=== PATIENT | female | born 1935 | race Caucasian/White ===

== ENCOUNTER 2022-08-06 08:48 | Inpatient (IN) | payer MEDICAID ==
[~2022-08-06] VITALS: Ht 144.8 cm; Wt 49.9 kg
--- NOTE | 2022-08-06 08:48 | NUR ---
PT PLACED IN BED 09 BY [facility], RT AT BEDSIDE FOR CPAP SUPPORT
[2022-08-06 08:52] VITALS: BP 217/130
[2022-08-06] MEDS ORDERED: methylPREDNISolone SS 125 MG/2 ML VIAL IVP ONE (09:00)
[2022-08-06] MEDS ORDERED: ALBUTEROL 0.083% 2.5 MG/3 ML NEBU INH ONE ×3 (09:00→09:30)
[2022-08-06] MEDS ORDERED: IPRATROPIUM 0.02% 0.5 MG/2.5 ML NEBU INH ONE ×2 (09:00)
[2022-08-06] MEDS ORDERED: hydrALAZINE 20 MG/ML VIAL IVP ONE ×2 (09:00→10:25)
[2022-08-06 09:10] LABS: BASOPHILS # (AUTO) 0.1 K/uL (0.00-0.22); BASOPHILS % (AUTO) 0.6 % (0.0-2.0); EOSINOPHILS # (AUTO) 0.2 K/uL (0-0.4); HEMATOCRIT 30.9 % (36-48); HEMOGLOBIN 9.9 g/dL (12.0-16.0); LYMPHOCYTES # (AUTO) 0.7 K/uL (2.5-16.5); LYMPHOCYTES % (AUTO) 7.4 % (20.5-51.1); MEAN CORPUSCULAR HEMOGLOBIN 25 pg (27-31); MEAN CORPUSCULAR HGB CONC 32 g/dL (33-37); MEAN CORPUSCULAR VOLUME 79.5 fL (80-94); MONOCYTES # (AUTO) 0.5 K/uL (0.8-1.0); MONOCYTES % (AUTO) 5.8 % (1.7-9.3); NEUTROPHILS # (AUTO) 7.8 K/uL (1.8-7.7); NEUTROPHILS % (AUTO) 84.2 % (42.2-75.2); PLATELET COUNT (AUTO) 307 K/uL (140-450); RED BLOOD CELL COUNT(AUTO) 3.89 MIL/uL (4.20-5.40); RED CELL DISTRIBUTION WIDTH 15.8 % (11.6-13.7); WHITE BLOOD COUNT (AUTO) 9.2 K/uL (4.8-10.8)
[2022-08-06 09:23] LABS: PROTHROMBIN TIME 10.6 secs (10.8-13.4)
[2022-08-06] MEDS ORDERED: LORazepam 2 MG/ML VIAL IVP ONE (09:30)
[2022-08-06] MEDS ORDERED: hydrALAZINE 20 MG/ML VIAL IM ONE (09:50)
--- NOTE | 2022-08-06 09:54 | NUR ---
DR FERNANDEZ SPEAKING TO SON BLAISE, INFORM OF PT CONDITION AND CLARIFYING PT HX AND INFORMATION. PER SON, PT HAS HDL, DM, "LUNG PROBLEMS, HEART PROBLEMS" Addendum: 08/06/22 at 0957 by MNURBMD COPD HOME O2 3LPM
[2022-08-06 10:00] LABS: ALBUMIN 3.8 g/dL (3.4-5.0); ANION GAP 14.2 (8-16); ASPARTATE AMINOTRANSFERASE 277 U/L (15-37); CARBON DIOXIDE 29.2 mmol/L (21-32); CHLORIDE 103 mmol/L (98-107); CREATININE 0.9 mg/dL (0.6-1.3); GLUCOSE 204 mg/dL (74-106); POTASSIUM 4.4 mmol/L (3.5-5.1); SODIUM SERUM 142 mmol/L (136-145); TOTAL BILIRUBIN 0.3 mg/dL (0.0-1.0); UREA NITROGEN, BLOOD 29 mg/dL (7-18)
[2022-08-06 10:12] VITALS: BP 217/130
--- NOTE | 2022-08-06 11:07 | NUR ---
Spoke with Dr Wu re: UA. Pt is incontinent. said ok to get when able to but not really STAT. Lab results are back.
[2022-08-06] MEDS ORDERED: KETOROLAC 15 MG/ML VIAL IVP ONE (11:15)
[2022-08-06] MEDS ORDERED: ASPIRIN 325 MG TAB PO ONE (12:15)
[2022-08-06] MEDS ORDERED: MAG SULF 2000 MG/WATER PREMIX 50 ML IV PRN (12:45)
[2022-08-06] MEDS ORDERED: ONDANSETRON 4 MG/2 ML VIAL IVP PRN (12:45)
[2022-08-06] MEDS ORDERED: DOCUSATE SODIUM 100 MG GELCAP PO PRN (12:45)
[2022-08-06] MEDS ORDERED: ACETAMINOPHEN 325 MG TAB PO PRN (12:45)
[2022-08-06] MEDS ORDERED: POTASSIUM CHLORIDE 10 MEQ TABER PO PRN (12:45)
[2022-08-06] MEDS ORDERED: cefTRIAXone 1,000 MG VIAL ONE (12:55)
[2022-08-06] MEDS ORDERED: methylPREDNISolone SS 40 MG in WATER STERILE 1 ML IV SCH (13:00)
--- NOTE | 2022-08-06 14:09 | NUR ---
COVID SWABBED AT THIS TIME
[2022-08-06] MEDS ORDERED: AZITHROMYCIN 500 MG INJ VIAL IV ONE (15:30)
[2022-08-06 15:36] LABS: BILIRUBIN,URINE NEGATIVE (NEGATIVE); BLOOD, URINE NEGATIVE (NEGATIVE); COLOR,URINE YELLOW (YELLOW); LEUKOCYTE ESTERASE ,URINE TRACE (NEGATIVE); NITRITE, URINE NEGATIVE (NEGATIVE); PH,URINE 6.5 (5.0-9.0); UGLUCOSE TRACE (NEGATIVE)
[2022-08-06 15:40] LABS: APPEARANCE,URINE HAZY (CLEAR)
[2022-08-06] MEDS: AZITHROMYCIN 500 MG in DEXTROSE 5% 250 ML IV SCH (15:50)
[2022-08-06 15:54] LABS: RBC,URINE NONE SEEN /HPF (0-5); WBC,URINE 0-5 /HPF (0-5)
[2022-08-06] MEDS ORDERED: hydrALAZINE 20 MG/ML VIAL IVP PRN (16:45)
--- NOTE | 2022-08-06 17:30 | NUR ---
admitted the patient from the emergency room rn in 107A aox2-3 with admitting diagnosis of chronic obstructive pulmonary disease . will continue to monitor
--- NOTE | 2022-08-06 17:30 | NUR ---
Patient will be admitted to care of DR. MCKEON. Admited to TELEMETRY. Will go to room 107A. Belongings list completed. Report to ETHEL LENZ.
--- NOTE | 2022-08-06 17:37 | NUR ---
PATIENT HAS BEEN SCREENED AND CATEGORIZED MODERATE NUTRITION RISK. PATIENT WILL BE SEEN WITHIN 3-5 DAYS OF ADMISSION. REVIEWED BY BINA RHOADES RD
--- NOTE | 2022-08-06 18:17 | NUR ---
Called again son Sameer to let him know that pt is admitted to 107A
[2022-08-06] MEDS: FUROSEMIDE 40 MG/4 ML VIAL IVP SCH (18:31)
--- NOTE | 2022-08-06 19:01 | NUR ---
will endorse to assistant casino shift manager rn for continuity of care for cardiac , pulmonary consult . bronchodilators and antibiotics
[2022-08-06 20:00] VITALS: BP 159/78
[2022-08-06] MEDS: methylPREDNISolone SS 40 MG/ML VIAL IVP SCH (21:17)
[2022-08-06] MEDS: ZOLPIDEM 10 MG TAB PO PRN (22:08)
--- NOTE | 2022-08-06 22:08 | NUR ---
PT COMPLAINTS OF UNABLE TO SLEEP, SLEEPING MEDICATION ADMINISTERED ORDERED.
[2022-08-06] MEDS: LORazepam 2 MG/ML VIAL IVP PRN (23:52)
--- NOTE | 2022-08-06 23:52 | NUR ---
PT VERBALIZED OF ANXIETY AND AGITATED, ATIVAN ADMINISTERED ORDERED.
[2022-08-07] VITALS: BP 164/89
[2022-08-07] MEDS: hydrALAZINE 20 MG/ML VIAL IVP PRN ×2 (01:16→23:56)
--- NOTE | 2022-08-07 01:16 | NUR ---
PT BP-164/89, P-107, HYDRALAZINE ADMINISTERED ORDER.
[2022-08-07 04:00] VITALS: BP 159/81
--- NOTE | 2022-08-07 04:45 | NUR ---
PT AWAKE AND BECOME AGITATED, UNABLE TO CHECK VITAL SIGNS. NOSE BLEEDS PRESENTS FEW MINUTES AFTER AGITATION. TRY TO CALM PATIENT BY VERBAL PROMS, PT IS STILL NOT COOPERATIVE AND AGITATED.
[2022-08-07] MEDS: methylPREDNISolone SS 40 MG/ML VIAL IVP SCH ×3 (05:00→20:27)
[2022-08-07] MEDS: LORazepam 2 MG/ML VIAL IVP PRN ×2 (05:10→09:44)
--- NOTE | 2022-08-07 05:10 | NUR ---
ADMINISTERED ATIVAN VIA IVP ORDERED AND REPORTED TO DR. GOODMAN. DR. GOODMAN INSTRUCTED TO MONITOR AND SEE HOW SHE IS DOING AFTER ATIVAN. NO NEW MEDICATION ORDER.
--- NOTE | 2022-08-07 05:20 | NUR ---
PT CALM DOWN AND NOTED TIRED AND SLEEP. VITAL SIGNS: B/P-159/81, O2 SAT-100% ON 2 LPM, HR-104, T-96.3. R-23. NOSE BLEEDING IS STOP.
--- NOTE | 2022-08-07 07:12 | NUR ---
receive the patient from the shift mechanic rn in rm 107A aox2 with episode of confusion .admitting diagnosis of chronic obstructive pulmonary disease still on breathing treatments PRN for shortness of breath . will also be treated with antibiotics . will continue to monitor
[2022-08-07 07:15] LABS: BASOPHILS % (AUTO) 0.2 % (0.0-2.0); HEMATOCRIT 25.5 % (36-48); HEMOGLOBIN 8.3 g/dL (12.0-16.0); LYMPHOCYTES # (AUTO) 0.5 K/uL (2.5-16.5); LYMPHOCYTES % (AUTO) 7.8 % (20.5-51.1); MEAN CORPUSCULAR HEMOGLOBIN 25 pg (27-31); MEAN CORPUSCULAR HGB CONC 33 g/dL (33-37); MEAN CORPUSCULAR VOLUME 78.1 fL (80-94); MONOCYTES # (AUTO) 0.3 K/uL (0.8-1.0); MONOCYTES % (AUTO) 3.8 % (1.7-9.3); NEUTROPHILS % (AUTO) 88.2 % (42.2-75.2); PLATELET COUNT (AUTO) 262 K/uL (140-450); RED BLOOD CELL COUNT(AUTO) 3.27 MIL/uL (4.20-5.40); RED CELL DISTRIBUTION WIDTH 16.1 % (11.6-13.7); WHITE BLOOD COUNT (AUTO) 6.8 K/uL (4.8-10.8)
[2022-08-07 07:33] LABS: ANION GAP 13.4 (8-16); CARBON DIOXIDE 28.5 mmol/L (21-32); CHLORIDE 104 mmol/L (98-107); CREATININE 0.9 mg/dL (0.6-1.3); GLUCOSE 185 mg/dL (74-106); POTASSIUM 3.9 mmol/L (3.5-5.1); SODIUM SERUM 142 mmol/L (136-145); UREA NITROGEN, BLOOD 29 mg/dL (7-18)
--- NOTE | 2022-08-07 07:45 | NUR ---
intravenous line was pulled out accidentally by the patient oh=n her left antecubital . secure with 4x4 gauze to prevent bleeding and infection
--- NOTE | 2022-08-07 07:45 | NUR ---
will hold blood thinner Aspirin for excessive bleeding . will continue to monitor
[2022-08-07 08:00] VITALS: BP 149/74
--- NOTE | 2022-08-07 08:00 | NUR ---
started intravenous line right hand gauge 22 . patent and intact . secured with curlex
[2022-08-07] MEDS: MORPHINE SULFATE 2 MG/ML SYR IVP PRN ×2 (08:09→17:26)
[2022-08-07] MEDS: ASPIRIN 81 MG TAB.CHEW PO SCH (08:09)
[2022-08-07] MEDS: lisinopriL 10 MG TAB PO SCH (08:09)
[2022-08-07] MEDS: FUROSEMIDE 40 MG/4 ML VIAL IVP SCH ×2 (08:09→17:26)
--- NOTE | 2022-08-07 08:15 | NUR ---
md zuluaga made some rounds . gave an update of the patient . no further order at this time .
--- NOTE | 2022-08-07 08:30 | NUR ---
morphine sulfate was given thru intravenous line for mild chest pain . will re assess after an hour .
--- NOTE | 2022-08-07 09:15 | NUR ---
magnesium level of the patient is 1.7 . magnesium was replace with magnesium intravenous at 20mls/hr . will continue to monitor
--- NOTE | 2022-08-07 09:43 | NUR ---
REC'D CALL TO GIVE PRN TREATMENT. UPON ARRIVAL FOUND PATIENT IN RESPIRATORY DISTRESS - LABORED BREATHING AND MODERATED USE OF ABDOMINAL MUSCLES. RR WAS 32. AFTER TREATMENT PATIENT RR DECREASED TO 24 AND OLNY MODERATE USE OF ABDOMINAL MUSCLES. FOLLOWED UP AN HOUR LATER AND PT WAS RELAXED AND SLEEPING.
--- NOTE | 2022-08-07 09:45 | NUR ---
patient showing sign and symptoms of anxiety . atiavn was administered . will re assess after an hour . will continue to monitor .
[2022-08-07] MEDS: ALBUTEROL 0.083% 2.5 MG/3 ML NEBU INH PRN (10:02)
--- NOTE | 2022-08-07 10:23 | NUR ---
the patient was showing sign and symptoms of shortness of breath . the respiratory was called for a PRN breathing treatment .
[2022-08-07 12:00] VITALS: BP 173/83
[2022-08-07] MEDS: AZITHROMYCIN 500 MG in DEXTROSE 5% 250 ML IV SCH (15:43)
[2022-08-07 16:00] VITALS: BP 133/67
--- NOTE | 2022-08-07 16:50 | NUR ---
new intravenous catheter was inserted on right forearm gauge 20 . patent and intact
--- NOTE | 2022-08-07 17:15 | NUR ---
morphine was given due to complain of chest pain 10/09 . will continue to monitor
--- NOTE | 2022-08-07 18:59 | NUR ---
will endorse to awake overnight monitor rn for continuity of care . for antibiotics , breathing treatment . diuretics .
--- NOTE | 2022-08-07 19:10 | NUR ---
RECEIVED PT FRO MORNING SHIFT NURSE. PT IS AOX2, BEDBOUND, SYRIAN SPEAKING. PT IS ON 3L NC AND ON MECHANICAL SOFT DIET. PT HAS IV ON RIGHT FOREARM GAUGE 20, SALINE LOCK. PT SKIN IS INTACT. NO COMPLAIN OF PAIN AT THIS TIME AND NO S/S OF RESPIRATORY DISTRESS NOTED. ALL SAFETY MEASURES IMPLEMENTED. BAD WHEELS ON LOCK, BED IN LOW POSITION AND CALL LIGHT WITHIN REACH.
[2022-08-07 20:00] VITALS: BP 131/68
--- NOTE | 2022-08-07 20:27 | NUR ---
SCHEDULED AND PRESCRIBED MEDICATION WAS GIVEN TO PT PER MD ORDER. ALL SAFETY MEASURES IMPLEMENTED. BAD WHEELS ON LOCK, BED IN LOW POSITION AND CALL LIGHT WITHIN REACH.
[2022-08-07] MEDS: ZOLPIDEM 10 MG TAB PO PRN (22:23)
--- NOTE | 2022-08-07 22:23 | NUR ---
AMBIEN WAS GIVEN TO PT. NO S/S OF RESPIRATORY DISTRESS NOTED. ALL SAFETY MEASURES IMPLEMENTED. BAD WHEELS ON LOCK, BED IN LOW POSITION AND CALL LIGHT WITHIN REACH.
--- NOTE | 2022-08-07 23:56 | NUR ---
PRN HYDRALAZINE WAS GIVEN TO PT DUE TO BP OF 163/89 WITH PULSE OF 95.
[2022-08-08] VITALS: BP 163/89
--- NOTE | 2022-08-08 02:00 | NUR ---
PT IS SLEEPING. CHEST RISE AND FALL SYMMETRICALLY NOTED. RESPIRATION IS EVEN AND UNLABORED. ALL SAFETY MEASURES IMPLEMENTED. BED IN LOW POSITION, BED WHEELS ON LOCK AND CALL LIGHT WITHIN REACH.
[2022-08-08 04:00] VITALS: BP 139/69
--- NOTE | 2022-08-08 04:00 | NUR ---
MORNING CARE WAS DONE TO PT. CHANGED GOWN, CHUCKS AND LINENS. NO COMPLAIN OF PAIN. NO S/S OF RESPIRATORY DISTRESS NOTED. ALL SAFETY MEASURES IMPLEMENTED. BED IN LOW POSITION, BED WHEELS ON LOCK AND CALL LIGHT WITHIN REACH.
[2022-08-08] MEDS: methylPREDNISolone SS 40 MG/ML VIAL IVP SCH ×3 (05:10→20:07)
--- NOTE | 2022-08-08 05:10 | NUR ---
SCHEDULED AND PRESCRIBED MEDICATION WAS GIVEN TO PT PER MD ORDER. ALL SAFETY MEASURES IMPLEMENTED. BED IN LOW POSITION, BED WHEELS ON LOCK AND CALL LIGHT WITHIN REACH.
--- NOTE | 2022-08-08 07:05 | NUR ---
REPORT GIVEN TO ADITI GODDARD IN STABLE CONDITION. Addendum: 08/08/22 at 1914 by Gonzalez Torres LVN LVN ENTERED WRONG TIME.
--- NOTE | 2022-08-08 07:09 | NUR ---
ASSUMED CONTINUITY OF CARE. INITIAL ASSESSMENT DONE. KEEP COMFORTABLE ON BED. FALL PRECAUTION APPLIED. CALL LIGHT WITHIN REACH.
--- NOTE | 2022-08-08 07:09 | NUR ---
PT IS STABLE. ENDORSED PT TO MORNING SHIFT NURSE FOR CONTINUITY OF CARE.
[2022-08-08 07:37] LABS: HEMATOCRIT 25.8 % (36-48); HEMOGLOBIN 8.4 g/dL (12.0-16.0); LYMPHOCYTES # (AUTO) 0.7 K/uL (2.5-16.5); MEAN CORPUSCULAR HEMOGLOBIN 25 pg (27-31); MEAN CORPUSCULAR HGB CONC 33 g/dL (33-37); MEAN CORPUSCULAR VOLUME 77.4 fL (80-94); MONOCYTES # (AUTO) 0.3 K/uL (0.8-1.0); MONOCYTES % (AUTO) 4.7 % (1.7-9.3); PLATELET COUNT (AUTO) 268 K/uL (140-450); RED BLOOD CELL COUNT(AUTO) 3.33 MIL/uL (4.20-5.40)
[2022-08-08 07:55] LABS: CARBON DIOXIDE 30.2 mmol/L (21-32); CHLORIDE 105 mmol/L (98-107); CREATININE 1.1 mg/dL (0.6-1.3); GLUCOSE 157 mg/dL (74-106); POTASSIUM 4.2 mmol/L (3.5-5.1); SODIUM SERUM 143 mmol/L (136-145); UREA NITROGEN, BLOOD 48 mg/dL (7-18)
[2022-08-08 08:00] VITALS: BP 170/80
[2022-08-08] MEDS: hydrALAZINE 20 MG/ML VIAL IVP PRN (08:04)
[2022-08-08 08:20] LABS: LYMPHOCYTES % (AUTO) 9.6 % (20.5-51.1); NEUTROPHILS % (AUTO) 85.7 % (42.2-75.2)
--- NOTE | 2022-08-08 08:34 | NUR ---
RECEIVED ON SUPPLEMENTAL OXYGEN AT 3 LPM VIA NC SATURATION 99% POST HHN THERAPY TITRATED FIO2 TO 2 LPM DEE/RN NOTIFIED
--- NOTE | 2022-08-08 08:35 | NUR ---
RESPIRATORY THERAPIST -ODIN SAMPSON FOR PT. BREATHING TX. RT. ADJUSTED O2 AT 2L/MIN VIA NC.
[2022-08-08 09:10] VITALS: BP 134/67
[2022-08-08] MEDS: lisinopriL 10 MG TAB PO SCH (09:14)
[2022-08-08] MEDS: ASPIRIN 81 MG TAB.CHEW PO SCH (09:14)
[2022-08-08] MEDS: FUROSEMIDE 40 MG/4 ML VIAL IVP SCH ×2 (09:21→17:00)
[2022-08-08] MEDS: ALBUTEROL 0.083% 2.5 MG/3 ML NEBU INH PRN ×2 (11:08→14:10)
[2022-08-08 12:00] VITALS: BP 130/63
--- NOTE | 2022-08-08 13:00 | NUR ---
DR. MCKEON CAME AND SEEN PT..
--- NOTE | 2022-08-08 14:25 | NUR ---
INSERTED ADDITIONAL IV ACCESS ON LEFT WRIST GAUGE #22. TOLERATED WELL.
[2022-08-08] MEDS: AZITHROMYCIN 500 MG in DEXTROSE 5% 250 ML IV SCH (15:02)
[2022-08-08 16:45] VITALS: BP 125/56
--- NOTE | 2022-08-08 19:05 | NUR ---
REPORT GIVEN TO ADITI GODDARD IN STABLE CONDITION.
--- NOTE | 2022-08-08 19:06 | NUR ---
RECEIVED PT FROM MORNING SHIFT NURSE. PT IS AOX2-3, BEDBOUND, UKRAINIAN SPEAKING. PT IS ON 2L NC AND ON PUREE DIET. PT HAS IV ON RIGHT FOREARM GAUGE 20, SALINE LOCK AND LEFT WRIST GAUGE 22, SALINE LOCK. PT SKIN IS INTACT. NO COMPLAIN OF PAIN AT THIS TIME AND NO S/S OF RESPIRATORY DISTRESS NOTED. ALL SAFETY MEASURES IMPLEMENTED. BAD WHEELS ON LOCK, BED IN LOW POSITION AND CALL LIGHT WITHIN REACH.
--- NOTE | 2022-08-08 20:07 | NUR ---
SCHEDULED AND PRESCRIBED MEDICATION WAS GIVEN TO PT AND PRN JL PER MD ORDER. ALL SAFETY MEASURES IMPLEMENTED. BAD WHEELS ON LOCK, BED IN LOW POSITION AND CALL LIGHT WITHIN REACH.
[2022-08-08] MEDS: ZOLPIDEM 10 MG TAB PO PRN (20:08)
[2022-08-08] MEDS: MORPHINE SULFATE 2 MG/ML SYR IVP PRN (22:56)
--- NOTE | 2022-08-08 22:56 | NUR ---
PRN PAIN MEDICATION WAS GIVEN TO PT DUE TO BILATERAL LEG PAIN. ALL SAFETY MEASURES IMPLEMENTED. BAD WHEELS ON LOCK, BED IN LOW POSITION AND CALL LIGHT WITHIN REACH.
[2022-08-09] VITALS: BP 149/70
--- NOTE | 2022-08-09 | NUR ---
PT IS ON SLEEP. CHEST RISE AND FALL SYMMETRICALLY NOTED. RESPIRATION IS EVEN AND UNLABORED. ALL SAFETY MEASURES IMPLEMENTED. BED WHEELS ON LOCK, BED IN LOW POSITION AND CALL LIGHT WITHIN REACH.
--- NOTE | 2022-08-09 02:00 | NUR ---
CHECKED THE PT, STILL ON SLEEP. CHEST RISE AND FALL SYMMETRICALLY NOTED. RESPIRATION IS EVEN AND UNLABORED. ALL SAFETY MEASURES IMPLEMENTED. BED WHEELS ON LOCK, BED IN LOW POSITION AND CALL LIGHT WITHIN REACH.
--- NOTE | 2022-08-09 04:00 | NUR ---
MORNING CARE WAS DONE TO PT. CHANGED LINENS, GOWN AND SAJAN. PT DENIES PAIN. NO S/S OF RESPIRATORY DISTRESS NOTED. ALL SAFETY MEASURES IMPLEMENTED. BED IN LOW POSITION, BED WHEELS ON LOCK AND CALL LIGHT WITHIN REACH.
[2022-08-09] MEDS: methylPREDNISolone SS 40 MG/ML VIAL IVP SCH ×2 (05:59→12:50)
[2022-08-09 07:07] LABS: BASOPHILS % (AUTO) 0.1 % (0.0-2.0); HEMOGLOBIN 8.5 g/dL (12.0-16.0); LYMPHOCYTES # (AUTO) 0.7 K/uL (2.5-16.5); LYMPHOCYTES % (AUTO) 8.5 % (20.5-51.1); MEAN CORPUSCULAR HEMOGLOBIN 25 pg (27-31); MEAN CORPUSCULAR HGB CONC 33 g/dL (33-37); MEAN CORPUSCULAR VOLUME 77.6 fL (80-94); MONOCYTES # (AUTO) 0.4 K/uL (0.8-1.0); MONOCYTES % (AUTO) 4.6 % (1.7-9.3); NEUTROPHILS % (AUTO) 86.8 % (42.2-75.2); PLATELET COUNT (AUTO) 257 K/uL (140-450); RED BLOOD CELL COUNT(AUTO) 3.35 MIL/uL (4.20-5.40); RED CELL DISTRIBUTION WIDTH 15.8 % (11.6-13.7); WHITE BLOOD COUNT (AUTO) 8.1 K/uL (4.8-10.8)
[2022-08-09 07:15] LABS: ANION GAP 9.9 (8-16); CHLORIDE 103 mmol/L (98-107); CREATININE 1.2 mg/dL (0.6-1.3); GLUCOSE 193 mg/dL (74-106); POTASSIUM 3.9 mmol/L (3.5-5.1); SODIUM SERUM 141 mmol/L (136-145); UREA NITROGEN, BLOOD 55 mg/dL (7-18)
--- NOTE | 2022-08-09 07:20 | NUR ---
RECEIVED REPORT FROM ASSOCIATE MANAGER AFFILIATE MARKETING ADITI FOR CONTINUITY OF CARE. INITIAL ASSESSMENT DONE. ASLEEP AT THIS TIME. ON CONT. O2 @ 2L/NC. RESP. EVEN AND UNLABORED. IV ON SL. NOT IN ANY DISTRESS NOTED. CALL LIGHT KEPT WITHIN REACH. WILL CONTINUE TO MONITOR.
--- NOTE | 2022-08-09 07:23 | NUR ---
PT IS STABLE. ENDORSED PT TO MORNING SHIFT NURSE FOR CONTINUITY OF CARE.
[2022-08-09 08:00] VITALS: BP 163/81
--- NOTE | 2022-08-09 08:00 | NUR ---
Patient's Plan of Care was discussed and reviewed with CLOUD SECURITY ARCHITECT: [] Barbara
[2022-08-09] MEDS: lisinopriL 10 MG TAB PO SCH (10:05)
[2022-08-09] MEDS: ASPIRIN 81 MG TAB.CHEW PO SCH (10:05)
[2022-08-09] MEDS: FUROSEMIDE 40 MG TAB PO SCH (10:05)
--- NOTE | 2022-08-09 10:05 | NUR ---
SCHEDULED PO MEDICATIONS GIVEN. TOLERATING WELL.
--- NOTE | 2022-08-09 12:38 | NUR ---
PT. WITH LOW MICHAEL SCALE AT MODERATE TO HIGH RISK, CONTINUE TO FOLLOW PRESSURE INJURY PREVENTION INTERVENTIONS. -POSITIONING: TURN AND REPOSITION PATIENT Q 2H OR SOONER USE PILLOWS TO KEEP BONY PROMINENCES FROM DIRECT CONTACT WITH SURFACES USE REPOSITIONING WEDGES TO PROVIDE 30-DEGREE ANGLE FOR SIDE LYING POSITIONS OFFLOADING OR FOAM DRESSING TO ALL TUBING TO PREVENT MEDICAL DEVICES RELATED PRESSURE INJURY -RE-EVALUATING AND MANAGING INCONTINENCE MONITOR SKIN CONDITION DURING POSITION CHANGE DO NOT MASSAGE REDNESS, BONY PROMINENCES FREQUENT MEDHAT-CARE AND PROVIDE BARRIER CREAMS PRN IF SOILING MOISTURE CONTROL BY OFFER BED CONNELL/URINAL /ABSORBENT PAD TO WICK AND HOLD MOISTURE KEEP SKIN DRY AND PROTECT FROM FRICTION -MANAGE FRICTION/SHEAR/MOBILITY KEEP HOB AT THE LOWEST LEVEL OF ELEVATION NO MORE THAN 30 DEGREE UNLESS OTHERWISE CONTRAINDICATED USE LIFT SHEET OR TRANSFER DEVICE TO MOVE PATIENT AND PREVENT LATERAL SHEER. PROTECT HEELS, ELBOWS BONY PROMINENCES WITH SKIN BERRIES OR FOAM DRESSING IF EXPOSED TO FRICTION OFFLOAD BILATERAL HEELS BY PLACING PILLOWS UNDER CALVES AT ALL TIMES, UNLESS OTHERWISE CONTRAINDICATED -PRESSURE REDISTRIBUTION SURFACE THERAPY DALLIN ISOFLEX MATTRESS -NUTRITION: PLEASE FOLLOW RD RECOMMENDATIONS AND OFFER NUTRITION SUPPLEMENTS IF ORDERED. PLEASE CONTACT WOUND CARE NURSE FOR ANY QUESTION AND CHANGE OF WOUND CONDITION.
--- NOTE | 2022-08-09 12:49 | NUR ---
IV ROCEPHIN WAS GIVEN BY DEMARCUS DAVENPORT. TOLERATING WELL.
--- NOTE | 2022-08-09 15:12 | NUR ---
DC PLANNING ASSESSMENT COMPLETE PLEASE REFER TO ASSESSMENT FOR ADDITIONAL DETAILS BLAISE REPORTS DC PLAN IS FOR PT TO RETURN HOME WITH FAMILY PROVIDING TRANSPORTATION, WHEN MEDICALLY STABLE. Addendum: 08/09/22 at 1514 by Sen PARISI Amended: Links added.
[2022-08-09 16:00] VITALS: BP 161/86
[2022-08-09] MEDS: AZITHROMYCIN 500 MG in DEXTROSE 5% 250 ML IV SCH (16:00)
--- NOTE | 2022-08-09 16:00 | NUR ---
IV AZITHROMYCIN WAS GIVEN BY DEMARCUS DAVENPORT. TOLERATING WELL.
--- NOTE | 2022-08-09 19:33 | NUR ---
REPORT GIVEN TO JOANA FOR CONTINUITY OF CARE. REMAINS STABLE.
--- NOTE | 2022-08-09 19:57 | NUR ---
RECEIVED PATIENT IN BED AWAKE ALERT VERBALLY RESPONSIVE. ON 2L O2 VIA NC. NO S/S OF RESPIRATORY DISTRESS. IV ACCESS TO RFA AND LEFT WRIST 20 GAUGE SALINE LOCK. DENIES PAIN. ALL SAFETY PRECAUTIONS ARE IN PLACE. CALL LIGHT ON EASY REACH. PATIENT IS INCONTINENT.
[2022-08-09] MEDS: ZOLPIDEM 10 MG TAB PO PRN (20:45)
[2022-08-09] MEDS: hydrALAZINE 20 MG/ML VIAL IVP PRN (21:01)
[2022-08-09] MEDS: LORazepam 2 MG/ML VIAL IVP PRN (23:23)
[2022-08-10] VITALS: BP 150/87
--- NOTE | 2022-08-10 01:25 | NUR ---
PATIENT SLEEPING ON 2LNC NO SOB NOTED
--- NOTE | 2022-08-10 03:10 | NUR ---
REGISTRY NURSE SU RN NOTIFIED RN, OBSERVED PATIENT OUT OF BED WITH UNSTEADY GAIT OF FALLING AGAINST DOOR AND SLIDING DOWN TO FLOOR ON BOTTOM. ASSISTED PT WITH 2 STAFF BACK TO BED. SKIN CHECKED NO INJURY, NO BRUISES NO CHANGE IN MENTAL STATUS, NO LOSS OF CONSCIOUSNESS. HEAD TO TOE ASSESSMENT COMPLETED. V/S: AFTER THE FALL: 156/88 82 18 94% 97.4. MD AND FAMILY MEMBER NOTIFIED.
--- NOTE | 2022-08-10 07:10 | NUR ---
RECEIVED REPORT FROM PIE BAKERY LABORER FOR CONTINUITY OF CARE. INITIAL ASSESSMENT DONE. IV ON SL. ON CONT. O2 @ 2L/NC. NOT IN ANY DISTRESS NOTED. CALL LIGHT KEPT WITHIN REACH. WILL CONTINUE TO MONITOR.
--- NOTE | 2022-08-10 07:20 | NUR ---
ENDORSED PATIENT TO DAY SHIFT NURSE FOR CONTINUITY OF CARE.
[2022-08-10 07:27] LABS: BASOPHILS % (AUTO) 0.1 % (0.0-2.0); EOSINOPHILS % (AUTO) 0.3 % (0.0-4.0); HEMATOCRIT 25.1 % (36-48); HEMOGLOBIN 8.4 g/dL (12.0-16.0); LYMPHOCYTES # (AUTO) 1.5 K/uL (2.5-16.5); LYMPHOCYTES % (AUTO) 20.5 % (20.5-51.1); MEAN CORPUSCULAR HEMOGLOBIN 26 pg (27-31); MEAN CORPUSCULAR HGB CONC 33 g/dL (33-37); MEAN CORPUSCULAR VOLUME 77.3 fL (80-94); MONOCYTES # (AUTO) 0.9 K/uL (0.8-1.0); MONOCYTES % (AUTO) 11.5 % (1.7-9.3); NEUTROPHILS % (AUTO) 67.6 % (42.2-75.2); PLATELET COUNT (AUTO) 248 K/uL (140-450); RED BLOOD CELL COUNT(AUTO) 3.25 MIL/uL (4.20-5.40); RED CELL DISTRIBUTION WIDTH 15.2 % (11.6-13.7); WHITE BLOOD COUNT (AUTO) 7.5 K/uL (4.8-10.8)
[2022-08-10 07:37] LABS: ANION GAP 8.3 (8-16); CARBON DIOXIDE 34.5 mmol/L (21-32); CHLORIDE 103 mmol/L (98-107); CREATININE 0.9 mg/dL (0.6-1.3); GLUCOSE 132 mg/dL (74-106); POTASSIUM 3.8 mmol/L (3.5-5.1); SODIUM SERUM 142 mmol/L (136-145); UREA NITROGEN, BLOOD 40 mg/dL (7-18)
[2022-08-10 08:00] VITALS: BP 150/74
[2022-08-10] MEDS: ASPIRIN 81 MG TAB.CHEW PO SCH (09:00)
[2022-08-10] MEDS: FUROSEMIDE 40 MG TAB PO SCH (09:00)
[2022-08-10] MEDS: lisinopriL 10 MG TAB PO SCH (09:00)
[2022-08-10] MEDS ORDERED: methylPREDNISolone SS 40 MG/ML VIAL IVP SCH (09:00)
--- NOTE | 2022-08-10 09:00 | NUR ---
SCHEDULED PO MEDICATIONS GIVEN. TOLERATED WELL.
--- NOTE | 2022-08-10 09:55 | NUR ---
SOLU MEDROL IVP GIVEN BY DEMARCUS DAVENPORT. TOLERATING WELL.
[2022-08-10] MEDS ORDERED: AZIT250T11 PO (12:32)
[2022-08-10] MEDS ORDERED: METH4TAB1 PO (12:32)
[2022-08-10] MEDS ORDERED: ASPI81CT95 PO (12:32)
[2022-08-10] MEDS ORDERED: LISI10TA30 PO (12:32)
[2022-08-10] MEDS ORDERED: FURO40TA9 PO (12:32)
--- NOTE | 2022-08-10 13:28 | NUR ---
IV ROCEPHIN WAS GIVEN BY DEMARCUS DAVENPORT. TOLERATING WELL.
[2022-08-10] MEDS: AZITHROMYCIN 500 MG in DEXTROSE 5% 250 ML IV SCH (15:00)
[2022-08-10 16:00] VITALS: BP 153/69
--- NOTE | 2022-08-10 16:24 | NUR ---
AZITHROMYCIN IV NOT GIVEN D/T PT FOR DISCHARGE.
--- NOTE | 2022-08-10 17:25 | NUR ---
P.T. NOTES P.T. EVAL COMPLETED; REFER TO EVAL FOR DETAILS.
--- NOTE | 2022-08-10 17:25 | NUR ---
PATIENT LEFT. DISCHARGE TO HOME. ALERT AND ORIENTED X 4. RESP. EVEN AND UNLABORED. ID BAND AND IV REMOVED. DISCHARGED PAPERWORK SIGN AND DISCUSS BY PT. PERSONAL BELONGINGS TAKEN. NOT IN ANY DISTRESS NOTED. REMAINS STABLE.
== END 2022-08-10 17:25 | disposition home or self-care (01) | DRG 720 ==
LOC: MED 08:48 → MTU 12:40
PROVIDERS: ADMIT Family Medicine; ATTEND Family Medicine
PROC: 5A09357 Assistance with Respiratory Ventilation, Less than 24 Consecutive Hours, Continuous Positive Airway Pressure (ICD-10-PCS; principal; 2022-08-06)
DX: A41.9 Sepsis, unspecified organism (principal); J96.21 Acute and chronic respiratory failure with hypoxia; I21.A1 Myocardial infarction type 2; J69.0 Pneumonitis due to inhalation of food and vomit; I50.33 Acute on chronic diastolic (congestive) heart failure; D50.9 Iron deficiency anemia, unspecified; E11.9 Type 2 diabetes mellitus without complications; J44.0 Chronic obstructive pulmonary disease with (acute) lower respiratory infection; I11.0 Hypertensive heart disease with heart failure; Z20.822 Contact with and (suspected) exposure to COVID-19; F17.200 Nicotine dependence, unspecified, uncomplicated; J44.1 Chronic obstructive pulmonary disease with (acute) exacerbation; I16.0 Hypertensive urgency
CPT/HCPCS: 36415; 36600; 71045; 80048; 80053; 81001; 82803; 83605; 83735; 83880; 84484; 85025; 85610; 85730; 87040; 87081; 87086; 93005; 94640; 94660; 96374; 96375; 96376; 99285; J0360; J0456; J0696; J1885; J1940; J2060; J2270; J2920; J2930; J3475; J7060; J7613; J7644; Q0092

== ENCOUNTER 2022-10-10 19:34 | Inpatient (IN) | payer MEDICAID ==
[~2022-10-10] VITALS: Ht 147.3 cm; Wt 44.5 kg
[~2022-10-10 19:34] MED LIST: ASPI81CT95 PO; AZIT250T11 PO; FURO40TA9 PO; LISI10TA30 PO; METH4TAB1 PO
--- NOTE | 2022-10-10 19:35 | NUR ---
PT BIBA VIA CPAP. PLACED ON BIPAP SETTINGS: 04/05, FIO2 30% PER DR. CRAWFORD. B/S DIMINISHED. SPO2 99% AT THIS TIME. WILL UPDATE FOR ANY NEW ORDERS.
--- NOTE | 2022-10-10 19:38 | NUR ---
AMPARO POWERS PT. PLACED IN BED 11
[2022-10-10] MEDS ORDERED: cefTRIAXone 1,000 MG in DEXT 5% MINI-BAG PLUS 50 ML IV ONE (19:40)
[2022-10-10 19:50] VITALS: BP 200/131
[2022-10-10] MEDS ORDERED: cefTRIAXone 1,000 MG VIAL ONE (19:56)
--- NOTE | 2022-10-10 20:00 | NUR ---
X-Ray at bedside.
[2022-10-10 20:12] LABS: BASOPHILS % (AUTO) 0.8 % (0.0-2.0); EOSINOPHILS # (AUTO) 0.1 K/uL (0-0.4); EOSINOPHILS % (AUTO) 2.2 % (0.0-4.0); HEMATOCRIT 33.2 % (36-48); LYMPHOCYTES # (AUTO) 1.2 K/uL (2.5-16.5); LYMPHOCYTES % (AUTO) 20.8 % (20.5-51.1); MEAN CORPUSCULAR HEMOGLOBIN 27 pg (27-31); MEAN CORPUSCULAR HGB CONC 33 g/dL (33-37); MEAN CORPUSCULAR VOLUME 81.7 fL (80-94); MONOCYTES # (AUTO) 0.4 K/uL (0.8-1.0); NEUTROPHILS # (AUTO) 3.9 K/uL (1.8-7.7); NEUTROPHILS % (AUTO) 69.2 % (42.2-75.2); PLATELET COUNT (AUTO) 283 K/uL (140-450); RED BLOOD CELL COUNT(AUTO) 4.06 MIL/uL (4.20-5.40); RED CELL DISTRIBUTION WIDTH 18.6 % (11.6-13.7); WHITE BLOOD COUNT (AUTO) 5.6 K/uL (4.8-10.8)
--- NOTE | 2022-10-10 20:38 | NUR ---
ASSISTED PT TO COMMODE TO URINATE AND FOR URINE COLLECTION. PT ABLE TO TOLERATE BUT NOTED TO HAVE O2 SATURATION DROP TO 93% WITH BIBPAP. ER AWARE.
--- NOTE | 2022-10-10 20:40 | NUR ---
MADE ER AWARE OF ELEVATED BP- NO NEW ORDERS AT THIS TIME.
[2022-10-10 20:42] LABS: ALBUMIN 3.7 g/dL (3.4-5.0); ANION GAP 10.9 (8-16); ASPARTATE AMINOTRANSFERASE 52 U/L (15-37); CARBON DIOXIDE 32.5 mmol/L (21-32); CHLORIDE 98 mmol/L (98-107); CREATININE 0.8 mg/dL (0.6-1.3); GLUCOSE 125 mg/dL (74-106); POTASSIUM 4.4 mmol/L (3.5-5.1); SODIUM SERUM 137 mmol/L (136-145); TOTAL BILIRUBIN 0.2 mg/dL (0.0-1.0); UREA NITROGEN, BLOOD 13 mg/dL (7-18)
[2022-10-10 20:52] LABS: BILIRUBIN,URINE NEGATIVE (NEGATIVE); BLOOD, URINE NEGATIVE (NEGATIVE); LEUKOCYTE ESTERASE ,URINE TRACE (NEGATIVE); NITRITE, URINE NEGATIVE (NEGATIVE); UGLUCOSE NEGATIVE (NEGATIVE)
[2022-10-10] MEDS ORDERED: LORazepam 2 MG/ML VIAL IVP ONE (20:55)
[2022-10-10 21:02] LABS: APPEARANCE,URINE HAZY (CLEAR)
[2022-10-10 21:10] LABS: COLOR,URINE STRAW (YELLOW); RBC,URINE FEW /HPF (0-5)
--- NOTE | 2022-10-10 21:23 | NUR ---
ASSISTED PATIENT OUT OF CLOTHES AND PLACED HOSPITAL GOWN. TOOK OFF BIPAP BUT PT HAD GONE DOWN TO 79% RA. PLACED BIPAP BACK ON AND MADE ER MD AWARE. PER ER MD KEEP PATIENT ON BIPAP BUT HAVE RT TURN DOWN O2 TO SEE HOW PATIENT WILL TOLERATE. ALSO INFORMED MD ABOUT CONSTANT ELEVATED BP- NO NEW ORDERS AT THIS TIME.
--- NOTE | 2022-10-10 21:25 | NUR ---
RT AT BEDSIDE
[2022-10-10] MEDS ORDERED: ALBUTEROL SULFATE/IPRATROPIU 3 ML SOL IH PRN (21:40)
[2022-10-10] MEDS ORDERED: HEPARIN PER PHARMACY MC PRN (23:30)
[2022-10-10] MEDS ORDERED: hePARIN / DEXT 5% PREMIX 250 ML IV SCH (23:30)
[2022-10-10 23:46] LABS: PROTHROMBIN TIME 10.7 secs (10.8-13.4)
[2022-10-11] MEDS: hePARIN / DEXT 5% PREMIX 250 ML IV SCH ×2 (00:58→10:11)
[2022-10-11] MEDS ORDERED: HYDROcodone/APAP 5/325 MG 1 TAB TAB PO PRN (01:55)
[2022-10-11] MEDS ORDERED: MORPHINE SULFATE 4 MG/ML SYR IVP PRN (01:55)
--- NOTE | 2022-10-11 02:51 | NUR ---
Informed admitting doctor about elevated BP 200s/100s. awaiting for orders.
--- NOTE | 2022-10-11 04:28 | NUR ---
Respiratory Therapist at bedside for respiratory intervention. Patient tolerated .
[2022-10-11 04:32] VITALS: BP 165/85
--- NOTE | 2022-10-11 06:31 | NUR ---
ASSISTED PT TO COMMODE TO URINATE. PT TOLERATING WELL.
[2022-10-11 06:52] LABS: BASOPHILS % (AUTO) 0.9 % (0.0-2.0); EOSINOPHILS # (AUTO) 0.1 K/uL (0-0.4); EOSINOPHILS % (AUTO) 2.1 % (0.0-4.0); LYMPHOCYTES # (AUTO) 1.9 K/uL (2.5-16.5); LYMPHOCYTES % (AUTO) 39.8 % (20.5-51.1); MEAN CORPUSCULAR HEMOGLOBIN 27 pg (27-31); MEAN CORPUSCULAR HGB CONC 33 g/dL (33-37); MEAN CORPUSCULAR VOLUME 81.7 fL (80-94); MONOCYTES # (AUTO) 0.4 K/uL (0.8-1.0); MONOCYTES % (AUTO) 8.1 % (1.7-9.3); NEUTROPHILS # (AUTO) 2.4 K/uL (1.8-7.7); NEUTROPHILS % (AUTO) 49.1 % (42.2-75.2); PLATELET COUNT (AUTO) 290 K/uL (140-450); RED BLOOD CELL COUNT(AUTO) 4.53 MIL/uL (4.20-5.40); RED CELL DISTRIBUTION WIDTH 18.6 % (11.6-13.7); WHITE BLOOD COUNT (AUTO) 4.8 K/uL (4.8-10.8)
[2022-10-11 07:03] LABS: ANION GAP 7.7 (8-16); CARBON DIOXIDE 36.8 mmol/L (21-32); CHLORIDE 98 mmol/L (98-107); CREATININE 0.8 mg/dL (0.6-1.3); GLUCOSE 99 mg/dL (74-106); POTASSIUM 4.5 mmol/L (3.5-5.1); SODIUM SERUM 138 mmol/L (136-145); UREA NITROGEN, BLOOD 11 mg/dL (7-18)
[2022-10-11 07:08] LABS: PROTHROMBIN TIME 10.8 secs (10.8-13.4)
--- NOTE | 2022-10-11 07:16 | NUR ---
Pt report given to Silverio DAVENPORT. Transfer of care at this time.
[2022-10-11 08:00] VITALS: BP 204/111
--- NOTE | 2022-10-11 08:45 | NUR ---
TRANSFERRED TO TELE 122A VIA ACLS PROTOCOL, CONTINUITY OF CARE ENDORSED TO ETHEL TRACY. PATIENT UPDATED ACCORDINGLY.
--- NOTE | 2022-10-11 08:48 | NUR ---
PATIENT HAS BEEN SCREENED AND CATEGORIZED LOW NUTRITION RISK. PATIENT WILL BE SEEN WITHIN 7 DAYS OF ADMISSION. 10/17/[address]
--- NOTE | 2022-10-11 10:30 | NUR ---
receive the patinet from the emergency nurse Sal mauro djiboutian speaking . with admitting diagnosis of shortness of breath fever , chills . still on a bipap rate 20 Fio2 of 28% . no sign and symptoms of respiratory distress . on heparin drip 5.3 . will continue to monitor
--- NOTE | 2022-10-11 11:22 | NUR ---
latest PTT came out the . heparin drip was bump up to 7.1 . next schedule of PTT at 16:00 om . will continue to monitor
[2022-10-11] MEDS ORDERED: METOPROLOL 25 MG TAB PO SCH (11:50)
[2022-10-11 12:00] VITALS: BP 185/87
[2022-10-11] MEDS ORDERED: HYDROcodone/APAP 7.5/325 MG 1 TAB PO PRN (13:00)
[2022-10-11] MEDS ORDERED: ACETAMINOPHEN 325 MG TAB PO PRN (13:00)
[2022-10-11] MEDS ORDERED: ONDANSETRON 4 MG/2 ML VIAL IVP PRN (13:00)
[2022-10-11] MEDS ORDERED: NACL 0.9% 1,000 ML IV SCH (13:00)
[2022-10-11 13:31] LABS: BASOPHILS # (AUTO) 0.1 K/uL (0.00-0.22); BASOPHILS % (AUTO) 1.5 % (0.0-2.0); EOSINOPHILS # (AUTO) 0.2 K/uL (0-0.4); EOSINOPHILS % (AUTO) 3.7 % (0.0-4.0); HEMATOCRIT 34.9 % (36-48); HEMOGLOBIN 11.3 g/dL (12.0-16.0); LYMPHOCYTES # (AUTO) 1.6 K/uL (2.5-16.5); LYMPHOCYTES % (AUTO) 36.9 % (20.5-51.1); MEAN CORPUSCULAR HEMOGLOBIN 27 pg (27-31); MEAN CORPUSCULAR HGB CONC 32 g/dL (33-37); MEAN CORPUSCULAR VOLUME 81.7 fL (80-94); MONOCYTES # (AUTO) 0.4 K/uL (0.8-1.0); MONOCYTES % (AUTO) 10.1 % (1.7-9.3); NEUTROPHILS % (AUTO) 47.8 % (42.2-75.2); PLATELET COUNT (AUTO) 263 K/uL (140-450); RED BLOOD CELL COUNT(AUTO) 4.27 MIL/uL (4.20-5.40); RED CELL DISTRIBUTION WIDTH 18.9 % (11.6-13.7); WHITE BLOOD COUNT (AUTO) 4.2 K/uL (4.8-10.8)
[2022-10-11 13:46] LABS: PROTHROMBIN TIME 13.1 secs (10.8-13.4)
[2022-10-11 13:49] LABS: ANION GAP 5.8 (8-16); CARBON DIOXIDE 35.1 mmol/L (21-32); CHLORIDE 99 mmol/L (98-107); CREATININE 0.8 mg/dL (0.6-1.3); GLUCOSE 111 mg/dL (74-106); POTASSIUM 3.9 mmol/L (3.5-5.1); SODIUM SERUM 136 mmol/L (136-145); UREA NITROGEN, BLOOD 10 mg/dL (7-18)
--- NOTE | 2022-10-11 13:50 | NUR ---
CHECKED ON PATIENT FOR ROUTINE BIPAP CHECK, PATIENT FOUND ON 2L NASAL CANNULA. PATIENT WAS COMFORTABLE. NO DISTRESS NOTED AT THIS TIME. PATIENT REQUESTED FOR ASSISTANCE TO SIT IN CHAIR. HELPED PATIENT TO SIT IN CHAIR AT BEDSIDE, NO COMPLICATIONS AT THIS TIME. CALL BUTTON LEFT AT SIDE OF PATIENT. WILL CONTINUE TO MONITOR.
[2022-10-11 14:01] LABS: CHOL/HDL RATIO 1.9 (1-4.5); FREE T4 (FREE THYROXINE) 1.01 ng/dL (0.76-1.46); MAGNESIUM 1.6 mg/dL (1.8-2.4); PHOSPHORUS 3.7 mg/dL (2.5-4.9); THYROID STIMULATING HORMONE 2.33 uIU/mL (0.34-3.74)
[2022-10-11] MEDS ORDERED: FUROSEMIDE 40 MG/4 ML VIAL IVP SCH (14:12)
--- NOTE | 2022-10-11 14:23 | NUR ---
Md saleem erp consultant discontinue heparin drip . made new order . noted and carried out
[2022-10-11] MEDS: ALPRAZolam 0.25 MG TAB PO PRN (15:58)
[2022-10-11 16:00] VITALS: BP 208/121
--- NOTE | 2022-10-11 16:40 | NUR ---
patient went for CT scan of the chest for shortness of breath . tolerated the procedure . no adverse reactions noted
[2022-10-11 17:14] LABS: BARBITURATE, URINE NEGATIVE ng/ml (NEG <=200); BENZODIAZEPINE, URINE NEGATIVE ng/mL (NEG <=200); CANNABINOID, URINE POSITIVE ng/mL (NEG <=50); COCAINE, URINE NEGATIVE ng/mL (NEG <=300); OPIATE, URINE NEGATIVE ng/mL (NEG <=2000); PHENCYCLIDINE SCREEN,URINE NEGATIVE ng/mL (NEG <=25)
--- NOTE | 2022-10-11 17:15 | NUR ---
PATIENT NOT IN ROOM FOR ROUTINE BIPAP CHECK.
[2022-10-11] MEDS: PIPERACILLIN/TAZOBACTAM 2.25 GM in DEXTROSE 5% 50 ML IV SCH ×2 (17:46→23:04)
[2022-10-11] MEDS: FUROSEMIDE 40 MG/4 ML VIAL IVP SCH (17:46)
--- NOTE | 2022-10-11 18:55 | NUR ---
will endorse to cnc machinist 2nd shift rn for continuity of care . will monitor oxygenation saturation for shortness of breath
--- NOTE | 2022-10-11 19:30 | NUR ---
RECEIVED PT FROM DAY RN FOR CONTINUITY OF CARE. PT MAORI SPEAKER, AWAKE, ALERT AND ORIENTED X 4, ON 2L NC SATING AT 96%. LUNG SOUNDS CLEAR, NO S/SX OF DISTRESS AT E MOMENT. IV ON R WRIST G 22, RUNNING NS AT 50ML. ALL SAFETY PRECAUTIONS IN PLACE. CALL LIGHT WITHIN REACH. WILL CONTINUE TO MONITOR.
[2022-10-11 20:00] VITALS: BP 154/74
[2022-10-11] MEDS: lisinopriL 20 MG TAB PO SCH (20:22)
[2022-10-11] MEDS: DOCUSATE SODIUM 100 MG GELCAP PO SCH (20:23)
--- NOTE | 2022-10-11 20:42 | NUR ---
Pt found sitting on side of bed on 2L oxygen with saturation of 96%. Breath sounds were clear and no distress noted. At this moment BiPAP not indicated. Will continue to monitor PT.
[2022-10-11] MEDS ORDERED: PIPERACILLIN/TAZOBACTAM 3.375 GM in DEXTROSE 5% 50 ML IV SCH (21:00)
--- NOTE | 2022-10-11 21:00 | NUR ---
SCHEDULED MEDICATIONS GIVEN. PT TOLERATED WELL. NO ACUTE DRUG REACTION NOTED. ALL PRECAUTIONS IN PLACE. CALL LIGHT WITHIN REACH. WILL CONTINUE TO MONITOR.
[2022-10-11] MEDS: hydrALAZINE 20 MG/ML VIAL IVP PRN (23:04)
[2022-10-12] VITALS (7 sets, daily range): BP systolic 101–175; BP diastolic 41–99
--- NOTE | 2022-10-12 01:30 | NUR ---
PT ASLEEP. NO S/SX OF DISTRESS NOTED. O2 SAT AT 98%. ALL PRECAUTIONS IN PLACE. CALL LIGHT WITHIN REACH. WILL CONTINUE TO MONITOR.
[2022-10-12] MEDS: PIPERACILLIN/TAZOBACTAM 2.25 GM in DEXTROSE 5% 50 ML IV SCH ×3 (05:49→18:14)
--- NOTE | 2022-10-12 06:00 | NUR ---
SCHEDULED MEDICATION GIVEN. PT TOLERATED WELL. ALL PRECAUTIONS IN PLACE. WILL CONTINUE TO MONITOR.
--- NOTE | 2022-10-12 06:56 | NUR ---
PT IS STABLE. NO ACUTE EVENTS THROUGHOUT THE NIGHT. ALL NEEDS MET. NO S/SX OF DISTRESS AT THE MOMENT. NO COMPLAINS OF PAIN. ALL SAFETY PRECAUTIONS IN PLACE. CALL LIGHT WITHIN REACH. WILL ENDORSE TO DAY SHIFT NURSE.
--- NOTE | 2022-10-12 07:05 | NUR ---
ASSUMED CONTINUITY OF CARE. INITIAL ASSESSMENT DONE. KEEP COMFORTABLE ON BED. EXPLAINED USE OF CALL LIGHT/BED/TV/BATHROOM. VERBALIZED UNDERSTANDING. FALL PRECAUTION APPLIED. CALL LIGHT WITHIN REACH.
--- NOTE | 2022-10-12 07:05 | NUR ---
BEDSIDE REPORT GIVEN TO SHY LLOYD. IVF INFUSING TKO. IN STABLE CONDITION. Addendum: 10/12/22 at 1923 by Gonzalez Torres LVN LVN WRONG ENTRY. ENTERED AT WRONG TIME.
--- NOTE | 2022-10-12 07:30 | NUR ---
RECEIVED PT ON 2L NASAL CANNULA. SATURATION 99%, MILD COUGH, EQUAL CHEST RISE, NO WHEEZING, NO DISTRESS NOTED. BIPAP ON STAND BY 02/03, 28%. WILL CONTINUE TO MONITOR.
--- NOTE | 2022-10-12 08:00 | NUR ---
Patient's Plan of Care was discussed and reviewed with CORPORATE LICENSED BROKER: DEE
--- NOTE | 2022-10-12 08:10 | NUR ---
DR. MAJOR CAME, INFORMED OF MAG 1.6 YESTERDAY 10/11/[address] AND NO COVERAGE GIVEN. DR. MAJOR SAID THAT SHE WILL PUT ORDER IN THE COMPUTER. DR. MAJOR ORDERED TO D/C IVF. ALSO INFORMED DR. MAJOR ABOUT O800 BP 175/86.
[2022-10-12] MEDS ORDERED: MAG SULF 2000 MG/WATER PREMIX 50 ML IV SCH (08:20)
[2022-10-12] MEDS: hydrALAZINE 20 MG/ML VIAL IVP PRN (08:25)
--- NOTE | 2022-10-12 08:52 | NUR ---
PT. WITH LOW MICHAEL SCALE AT MODERATE TO HIGH RISK, CONTINUE TO FOLLOW PRESSURE INJURY PREVENTION INTERVENTIONS. -POSITIONING: TURN AND REPOSITION PATIENT Q 2H OR SOONER USE PILLOWS TO KEEP BONY PROMINENCES FROM DIRECT CONTACT WITH SURFACES USE REPOSITIONING WEDGES TO PROVIDE 30-DEGREE ANGLE FOR SIDE LYING POSITIONS OFFLOADING OR FOAM DRESSING TO ALL TUBING TO PREVENT MEDICAL DEVICES RELATED PRESSURE INJURY -RE-EVALUATING AND MANAGING INCONTINENCE MONITOR SKIN CONDITION DURING POSITION CHANGE DO NOT MASSAGE REDNESS, BONY PROMINENCES FREQUENT MEDHAT-CARE AND PROVIDE BARRIER CREAMS PRN IF SOILING MOISTURE CONTROL BY OFFER BED CONNELL/URINAL /ABSORBENT PAD TO WICK AND HOLD MOISTURE KEEP SKIN DRY AND PROTECT FROM FRICTION -MANAGE FRICTION/SHEAR/MOBILITY KEEP HOB AT THE LOWEST LEVEL OF ELEVATION NO MORE THAN 30 DEGREE UNLESS OTHERWISE CONTRAINDICATED USE LIFT SHEET OR TRANSFER DEVICE TO MOVE PATIENT AND PREVENT LATERAL SHEER. PROTECT HEELS, ELBOWS BONY PROMINENCES WITH SKIN BERRIES OR FOAM DRESSING IF EXPOSED TO FRICTION OFFLOAD BILATERAL HEELS BY PLACING PILLOWS UNDER CALVES AT ALL TIMES, UNLESS OTHERWISE CONTRAINDICATED -PRESSURE REDISTRIBUTION SURFACE THERAPY MATTRESS -NUTRITION: PLEASE FOLLOW RD RECOMMENDATIONS AND OFFER NUTRITION SUPPLEMENTS IF ORDERED. PLEASE CONTACT WOUND CARE NURSE FOR ANY QUESTION AND CHANGE OF WOUND CONDITION.
[2022-10-12] MEDS ORDERED: lisinopriL 20 MG TAB PO SCH (09:00)
[2022-10-12 09:39] LABS: BASOPHILS % (AUTO) 0.9 % (0.0-2.0); EOSINOPHILS # (AUTO) 0.1 K/uL (0-0.4); EOSINOPHILS % (AUTO) 1.9 % (0.0-4.0); HEMATOCRIT 33.1 % (36-48); HEMOGLOBIN 10.9 g/dL (12.0-16.0); LYMPHOCYTES # (AUTO) 0.9 K/uL (2.5-16.5); LYMPHOCYTES % (AUTO) 20.3 % (20.5-51.1); MEAN CORPUSCULAR HEMOGLOBIN 27 pg (27-31); MEAN CORPUSCULAR HGB CONC 33 g/dL (33-37); MEAN CORPUSCULAR VOLUME 81.6 fL (80-94); MONOCYTES # (AUTO) 0.4 K/uL (0.8-1.0); MONOCYTES % (AUTO) 8.7 % (1.7-9.3); NEUTROPHILS # (AUTO) 3.1 K/uL (1.8-7.7); NEUTROPHILS % (AUTO) 68.2 % (42.2-75.2); PLATELET COUNT (AUTO) 255 K/uL (140-450); RED BLOOD CELL COUNT(AUTO) 4.06 MIL/uL (4.20-5.40); RED CELL DISTRIBUTION WIDTH 19.2 % (11.6-13.7); WHITE BLOOD COUNT (AUTO) 4.5 K/uL (4.8-10.8)
[2022-10-12 09:46] LABS: ANION GAP 9.3 (8-16); CARBON DIOXIDE 35.9 mmol/L (21-32); CHLORIDE 94 mmol/L (98-107); CREATININE 1.2 mg/dL (0.6-1.3); GLUCOSE 263 mg/dL (74-106); POTASSIUM 3.2 mmol/L (3.5-5.1); SODIUM SERUM 136 mmol/L (136-145); UREA NITROGEN, BLOOD 12 mg/dL (7-18)
[2022-10-12 09:51] LABS: MAGNESIUM 1.3 mg/dL (1.8-2.4); PHOSPHORUS 3.4 mg/dL (2.5-4.9)
[2022-10-12] MEDS: ASPIRIN 81 MG TAB.CHEW PO SCH (09:53)
[2022-10-12] MEDS: DOCUSATE SODIUM 100 MG GELCAP PO SCH ×2 (09:53→21:30)
[2022-10-12] MEDS: lisinopriL 20 MG TAB PO SCH ×2 (09:54→21:31)
[2022-10-12] MEDS: PANTOPRAZOLE 40 MG INJ VIAL IVP SCH (10:14)
[2022-10-12] MEDS: FUROSEMIDE 40 MG/4 ML VIAL IVP SCH ×2 (10:14→17:03)
--- NOTE | 2022-10-12 10:15 | NUR ---
PAGED DR. MAJOR REGARDING PT. K 3.2.
[2022-10-12] MEDS ORDERED: POTASSIUM CHLORIDE 10 MEQ TABER PO PRN (11:00)
[2022-10-12] MEDS ORDERED: MAG SULF 2000 MG/WATER PREMIX 50 ML IV PRN (11:00)
--- NOTE | 2022-10-12 16:29 | NUR ---
DC PLANNING 87 Y.O.FEMALE PATIENT ADMITTED TO TELEMETRY FOR SOB X 4 DAYS.PATIENT HAS HX OF ASTHMA AND ALSO EXPERIENCING BACK PAIN AND ANXIETY.BLOOD AND URINE CULTURE NO GROWTH.CXR SHOWS COPD AND BORDERLINE CARDIOMEGALY.ON PRN BIPAP.CHEST CT WITH EMPHYSEMATOUS LUNG CHANGES. ON ZOSYN.CARDIO AND PULMO ON BOARD. DC PLAN - HOME WHEN PATIENT RESPONDS TO TX.CM TO FOLLOW.
[2022-10-12] MEDS: ALPRAZolam 0.25 MG TAB PO PRN (17:09)
--- NOTE | 2022-10-12 19:05 | NUR ---
BEDSIDE REPORT GIVEN TO SHY LLOYD. IVF INFUSING WELL. IN STABLE CONDITION.
[2022-10-12] MEDS: ALBUTEROL SULFATE/IPRATROPIU 3 ML SOL IH PRN (19:20)
--- NOTE | 2022-10-12 19:20 | NUR ---
RECEIVED PT ON 2L NASAL CANNULA. SATURATION 98%, MILD COUGH AND EQUAL CHEST RISE. PT WHEEZING, [id number] USE OF ABDOMINALE MUSCLES.DISTRESS NOTED. PT WAS SLIGHTLY AGITATED AND WAS TACHYPNEIC. ADMIN DUONEB VIA HHN. POST TXN, PT HR DECREASED DID RR. BIPAP ON STAND BY 10/5, 28%. WILL CONTINUE TO MONITOR.
--- NOTE | 2022-10-12 19:30 | NUR ---
RECEIVED REPORT FROM DAY SHIFT NURSE DEE FOR CONTINUITY OF CARE. PATIENT IS A&O X4, FAROESE SPEAKING. PATIENT IS ON 2L NC, BREATHING IS NORMAL WITH SYMMETRICAL RISE AND FALL OF CHEST. IV IS A 22G RIGHT WRIST, RUNNING NS 10ML TKO. PATIENT IS LYING COMFORTABLY IN BED IN HIGH-FOWLERS POSITION. BED IS IN LOWEST POSITION, WHEELS LOCKED, CALL LIGHT IN PLACE. WILL CONTINUE TO OBSERVE PATIENT.
[2022-10-12] MEDS: methylPREDNISolone SS 40 MG/ML VIAL IVP SCH (21:29)
[2022-10-13] VITALS: BP 140/63
[2022-10-13] MEDS: PIPERACILLIN/TAZOBACTAM 2.25 GM in DEXTROSE 5% 50 ML IV SCH ×4 (00:31→17:19)
--- NOTE | 2022-10-13 01:00 | NUR ---
ADMINISTERED 0000 IVPB TO PATIENT. MEDICATION ADMINISTERED SUCCESSFULLY WITH NO ISSUES WITH IV. BREATHING IS NORMAL WITH SYMMETRICAL RISE AND FALL OF CHEST. IV IS RUNNING. WILL CONTINUE TO OBSERVE PATIENT.
[2022-10-13 04:00] VITALS: BP 168/91
[2022-10-13] MEDS: ALPRAZolam 0.25 MG TAB PO PRN ×2 (04:49→14:05)
--- NOTE | 2022-10-13 04:58 | NUR ---
Called to bedside by nurse due to nosebleed. Once bleeding subsided, replaced NC with humidity. pt seems anxious. RN stated BP is elevated. RN will give medication for BP and anxiety. Will continue to monitor pt. Addendum: 10/13/22 at 0509 by Myah Erickson RT UPON ARRIVAL PT ON ROOM AIR WITH O2 SATURATION AT 91%
[2022-10-13 05:34] LABS: BASOPHILS % (AUTO) 0.6 % (0.0-2.0); EOSINOPHILS % (AUTO) 0.3 % (0.0-4.0); HEMATOCRIT 35.5 % (36-48); HEMOGLOBIN 11.8 g/dL (12.0-16.0); LYMPHOCYTES # (AUTO) 0.6 K/uL (2.5-16.5); LYMPHOCYTES % (AUTO) 18.4 % (20.5-51.1); MEAN CORPUSCULAR HEMOGLOBIN 27 pg (27-31); MEAN CORPUSCULAR HGB CONC 33 g/dL (33-37); MEAN CORPUSCULAR VOLUME 80.9 fL (80-94); MONOCYTES # (AUTO) 0.1 K/uL (0.8-1.0); MONOCYTES % (AUTO) 1.9 % (1.7-9.3); NEUTROPHILS # (AUTO) 2.5 K/uL (1.8-7.7); NEUTROPHILS % (AUTO) 78.8 % (42.2-75.2); PLATELET COUNT (AUTO) 262 K/uL (140-450); RED BLOOD CELL COUNT(AUTO) 4.39 MIL/uL (4.20-5.40); RED CELL DISTRIBUTION WIDTH 19.5 % (11.6-13.7); WHITE BLOOD COUNT (AUTO) 3.2 K/uL (4.8-10.8)
[2022-10-13] MEDS: methylPREDNISolone SS 40 MG/ML VIAL IVP SCH ×3 (05:41→21:22)
[2022-10-13 06:13] LABS: CARBON DIOXIDE 32.9 mmol/L (21-32); CHLORIDE 96 mmol/L (98-107); CREATININE 1.2 mg/dL (0.6-1.3); GLUCOSE 188 mg/dL (74-106); POTASSIUM 3.9 mmol/L (3.5-5.1); SODIUM SERUM 137 mmol/L (136-145); UREA NITROGEN, BLOOD 12 mg/dL (7-18)
[2022-10-13 06:19] LABS: PHOSPHORUS 4.5 mg/dL (2.5-4.9)
--- NOTE | 2022-10-13 06:39 | NUR ---
UPON ARRIVAL, PT WAS ON ROOM AIR DUE TO PREVIOUS NOSEBLEED, SATURATION 92%. REPLACED NASAL CANNULA FOR PT COMFORT. NOSE IS NOT BLEEDING AT THIS TIME. WILL CONTINUE TO MONITOR.
--- NOTE | 2022-10-13 06:41 | NUR ---
PATIENT STARTED BLEEDING FROM RIGHT NARE. REMOVED NC AND APPLIED PRESSURE WITH TISSUE. BLEEDING CONTINUED, CALLED RT TO ASSESS FOR NEED OF HUMIDIFIER FOR NC. RT APPLIED HUMIDIFIER TO NC, PATIENT CONTINUED TO HAVE BLOODY NOSE FOR ANOTHER 30 MINUTES UNTIL STOPPING AROUND 0510. PATIENT HAD VOIDED AND WAS CLEANED AND CHANGED WITH THE ASSISTANCE OF BUSINESS OBJECTS SHADE. PATIENT STARTED BLEEDING AGAIN AROUND 0615. GAVE PATIENT COLD COMPRESS TO HOLD ON NOSE AND RT CAME DOWN TO ASSESS AND DECIDED TO LEAVE PATIENT OFF NC FOR A WHILE; PT SATURATION AT 92% OFF NC. BLEEDING HAS STOPPED FOR NOW.
--- NOTE | 2022-10-13 07:36 | NUR ---
ENDORSED TO DAY SHIFT NURSE TYREL FOR CONTINUITY OF CARE. PATIENT IS STABLE.
[2022-10-13 08:00] VITALS: BP 160/81
--- NOTE | 2022-10-13 08:10 | NUR ---
GOT REPORT FROM THE NIGHT NURSE, PT AWAKE DISCUSSED POC NO NOSE BLEED.[id number]
[2022-10-13] MEDS: FUROSEMIDE 40 MG/4 ML VIAL IVP SCH ×2 (09:13→17:19)
[2022-10-13] MEDS: lisinopriL 20 MG TAB PO SCH ×2 (09:15→21:22)
[2022-10-13] MEDS: ASPIRIN 81 MG TAB.CHEW PO SCH (09:15)
[2022-10-13] MEDS: DOCUSATE SODIUM 100 MG GELCAP PO SCH ×2 (09:16→21:23)
[2022-10-13] MEDS: PANTOPRAZOLE 40 MG INJ VIAL IVP SCH (09:16)
[2022-10-13 12:00] VITALS: BP 160/81
--- NOTE | 2022-10-13 14:07 | NUR ---
PATIENT ANXIOUS, ALPRAZOLAM PRN GIVEN AT THIS TIME.
--- NOTE | 2022-10-13 14:11 | NUR ---
O2 SAT 91-92% ON RA. PT FEELS ANXIOUS AND DIFFICULTY BREATHING, REQUESTING O2 VIA NC PUT BACK ON. PLACED ON O2 2L/MIN VIA NC BACK ON AT THIS TIME.
[2022-10-13] MEDS ORDERED: SIMETHICONE 80 MG TAB.CHEW PO PRN (14:35)
--- NOTE | 2022-10-13 14:43 | NUR ---
PT BACK ON HER 2L NASAL CANNULA. TALKED WITH PT, SHE SAID IT FEELS LIKE SHE HAS GAS IN HER STOMACH AND DOESN'T WANT TO EAT OR DRINK ANYTHING. AND ITS PAINFUL. NOTIFIED NURSE. WILL CONTINUE TO MONITOR.
--- NOTE | 2022-10-13 14:56 | NUR ---
COMPLAINS OF EPIGASTRIC BLOATING/GAS, SIMETHICONE PRN GIVEN AT THIS TIME. WILL CONTINUE TO MONITOR.
[2022-10-13 16:00] VITALS: BP 157/76
--- NOTE | 2022-10-13 17:20 | NUR ---
SCHEDULED MEDICATIONS DUE GIVEN. WILL CONTINUE TO MONITOR.
--- NOTE | 2022-10-13 19:28 | NUR ---
GAVE REPORT TO AMMONIA WORKER NURSE FOR CONTINUITY OF CARE. PATIENT IN STABLE CONDITION.
[2022-10-13] MEDS ORDERED: DEXTROSE 50% 50 ML SYR IVP PRN (19:30)
--- NOTE | 2022-10-13 19:30 | NUR ---
RECEIVED REPORT FROM DAY SHIFT NURSE [place]TE FOR CONTINUITY OF CARE. PATIENT IS A&O X4, ESTONIAN SPEAKING. PATIENT IS ON 2L NC, BREATHING IS NORMAL WITH SYMMETRICAL RISE AND FALL OF CHEST. IV IS A 22G LFA, RUNNING NS 10ML TKO. PATIENT IS LYING COMFORTABLY IN BED IN HIGH-FOWLERS POSITION. BED IS IN LOWEST POSITION, WHEELS LOCKED, CALL LIGHT IN PLACE. WILL CONTINUE TO OBSERVE PATIENT.
[2022-10-13 20:00] VITALS: BP 150/68
[2022-10-13] MEDS: ALBUTEROL SULFATE/IPRATROPIU 3 ML SOL IH PRN (20:48)
[2022-10-13] MEDS: BLOOD GLUCOSE MONITORING 1 DEV DEV FS SCH (21:16)
[2022-10-13] MEDS: INSULIN LISPRO SLIDING SCALE 100 UNITS/ML VIAL SUBQ PRN (21:19)
--- NOTE | 2022-10-13 22:00 | NUR ---
PATIENT STATED SHE NEEDED TO USE BATHROOM TO POOP. ASKED PATIENT IF SHE WANTED TO TRY WALKING TO THE BATHROOM. PATIENT STATED THEY HAD A TOILET NEXT TO HER BED EARLIER. THERE WAS NO COMMODE IN ROOM; WENT AND OBTAINED A COMMODE FOR THE PATIENT. PATIENT HAD A BM, AND THANKED ME. ETHEL APPLE TRANSLATED PATIENT'S REQUESTS.
[2022-10-14] VITALS: BP 148/75
[2022-10-14] MEDS: PIPERACILLIN/TAZOBACTAM 2.25 GM in DEXTROSE 5% 50 ML IV SCH ×4 (01:03→17:57)
[2022-10-14] MEDS: ALPRAZolam 0.25 MG TAB PO PRN (01:11)
--- NOTE | 2022-10-14 01:30 | NUR ---
ADMINISTERED 0000 IVPB TO PATIENT. PATIENT STATED SHE WAS FEELING ANXIOUS AND REQUESTED MEDICATION TO HELP HER RELAX SO SHE CAN GET TO SLEEP. CHECKED PATIENT'S VITALS AND CHART; ATIVAN PO WAS APPROPRIATE TO ADMINISTER. MEDICATION WAS ADMINISTERED SUCCESSFULLY WITHOUT ANY ISSUE WITH SWALLOWING. WILL CONTINUE TO OBSERVE PATIENT.
[2022-10-14 04:00] VITALS: BP 156/86
[2022-10-14] MEDS: methylPREDNISolone SS 40 MG/ML VIAL IVP SCH ×3 (05:11→20:55)
[2022-10-14 05:26] LABS: BASOPHILS % (AUTO) 0.1 % (0.0-2.0); HEMATOCRIT 31.1 % (36-48); HEMOGLOBIN 10.5 g/dL (12.0-16.0); LYMPHOCYTES # (AUTO) 0.6 K/uL (2.5-16.5); LYMPHOCYTES % (AUTO) 12.3 % (20.5-51.1); MEAN CORPUSCULAR HEMOGLOBIN 28 pg (27-31); MEAN CORPUSCULAR HGB CONC 34 g/dL (33-37); MEAN CORPUSCULAR VOLUME 81.5 fL (80-94); MONOCYTES # (AUTO) 0.1 K/uL (0.8-1.0); MONOCYTES % (AUTO) 1.9 % (1.7-9.3); NEUTROPHILS # (AUTO) 4.4 K/uL (1.8-7.7); NEUTROPHILS % (AUTO) 85.7 % (42.2-75.2); PLATELET COUNT (AUTO) 229 K/uL (140-450); RED BLOOD CELL COUNT(AUTO) 3.82 MIL/uL (4.20-5.40); RED CELL DISTRIBUTION WIDTH 19.3 % (11.6-13.7); WHITE BLOOD COUNT (AUTO) 5.1 K/uL (4.8-10.8)
--- NOTE | 2022-10-14 05:30 | NUR ---
ADMINISTERED 0500 IVP MEDICATION TO PATIENT AND 0600 IVPB TO PATIENT. MEDICATION ADMINISTERED SUCCESSFULLY WITHOUT ANY ISSUES WITH IV. PATIENT WAS AWAKE; ASKED PATIENT IF SHE NEEDED CHANGING, PATIENT STATED NO. CHECKED PATIENT'S COMMODE; COMMODE WAS CLEAN (PATIENT HAD BM EARLIER IN THE NIGHT). PATIENT'S BREATHING IS NORMAL WITH SYMMETRICAL RISE AND FALL OF CHEST. WILL CONTINUE TO OBSERVE PATIENT.
[2022-10-14 05:40] LABS: MAGNESIUM 1.8 mg/dL (1.8-2.4); PHOSPHORUS 4.6 mg/dL (2.5-4.9)
[2022-10-14] MEDS: BLOOD GLUCOSE MONITORING 1 DEV DEV FS SCH ×4 (06:11→21:24)
[2022-10-14] MEDS: INSULIN LISPRO SLIDING SCALE 100 UNITS/ML VIAL SUBQ PRN ×4 (06:13→21:27)
[2022-10-14 06:14] LABS: CARBON DIOXIDE 34.9 mmol/L (21-32); CHLORIDE 97 mmol/L (98-107); CREATININE 1.2 mg/dL (0.6-1.3); GLUCOSE 176 mg/dL (74-106); POTASSIUM 3.9 mmol/L (3.5-5.1); SODIUM SERUM 138 mmol/L (136-145); UREA NITROGEN, BLOOD 22 mg/dL (7-18)
--- NOTE | 2022-10-14 07:30 | NUR ---
RECEIVED PT FROM PITCHING COACH NURSE FOR CONTINUITY OF CARE. PT IS AWAKE, TELUGU SPEAKING. RESPIRATIONS EVEN AND UNLABORED ON 2L VIA NC. IV ON L F/A 22G. SKIN WARM AND DRY. NO DISTRESS NOTED. CALL LIGHT WITHIN REACH. ALL SAFETY PRECAUTIONS IN PLACE.
--- NOTE | 2022-10-14 07:39 | NUR ---
ENDORSED TO DAY SHIFT NURSE JOVITA FOR CONTINUITY OF CARE. PATIENT IS STABLE.
--- NOTE | 2022-10-14 07:55 | NUR ---
Patient's Plan of Care was discussed and reviewed with CLINICAL COURIER: Barbara
[2022-10-14 08:00] VITALS: BP 148/77
[2022-10-14] MEDS: DOCUSATE SODIUM 100 MG GELCAP PO SCH ×2 (08:18→20:59)
[2022-10-14] MEDS: ASPIRIN 81 MG TAB.CHEW PO SCH (08:18)
[2022-10-14] MEDS: lisinopriL 20 MG TAB PO SCH ×2 (08:19→20:56)
--- NOTE | 2022-10-14 08:22 | NUR ---
ADMINISTERED MORNING MEDS. PT TOLERATING WELL.
--- NOTE | 2022-10-14 10:00 | NUR ---
O2 REMOVED. PT NOW ON RA, SATURATING 98%, NO DISTRESS NOTED.
[2022-10-14] MEDS: PANTOPRAZOLE 40 MG INJ VIAL IVP SCH (10:27)
[2022-10-14] MEDS: FUROSEMIDE 40 MG/4 ML VIAL IVP SCH ×2 (10:27→17:57)
--- NOTE | 2022-10-14 10:30 | NUR ---
PT IS NOW ON RA FROM 2L NC SATING 94%. NO DISTRESS NOTED. RN AND SPOUTER AWARE.
[2022-10-14 12:00] VITALS: BP 134/74
[2022-10-14 16:00] VITALS: BP 152/73
--- NOTE | 2022-10-14 16:11 | NUR ---
PHYSICAL THERAPY CO-SIGN The Physical Therapy Progress Notes documented by [employer] Specialist have been reviewed. Reviewed/Co-Signed by: Paulina Rosenthal PT Documentation Done by:KASSI AREVALO SEAM FELLER Addendum: 10/14/22 at 1611 by Paulina Rosenthal PT Amended: Links added.
--- NOTE | 2022-10-14 19:09 | NUR ---
ENDORSED PT TO HOMICIDE SQUAD CAPTAIN NURSE FOR CONTINUITY OF CARE. PT IS STABLE.
--- NOTE | 2022-10-14 19:30 | NUR ---
RECEIVED REPORT FROM DAY SHIFT NURSE JOVITA FOR CONTINUITY OF CARE. PATIENT IS A&O X4, SURINAMESE SPEAKING. PATIENT IS ON ROOM AIR, BREATHING IS NORMAL WITH SYMMETRICAL RISE AND FALL OF CHEST. IV WAS PULLED OUT BY PATIENT. PATIENT IS SITTING COMFORTABLY ON SIDE OF BED WITH FEET DANGLING. BED IS IN LOWEST POSITION, WHEELS LOCKED, CALL LIGHT IN PLACE. WILL CONTINUE TO OBSERVE PATIENT.
[2022-10-14 20:00] VITALS: BP 152/77
--- NOTE | 2022-10-14 21:45 | NUR ---
NEW IV WAS PLACED INTO PATIENT BY ETHEL UGALDE. NEW IV SITE IS 24G R HAND. 2100 MEDICATION WAS ADMINISTERED WITHOUT ANY ISSUES WITH SWALLOWING OR IV. WILL CONTINUE TO OBSERVE PATIENT.
[2022-10-15] MEDS: PIPERACILLIN/TAZOBACTAM 2.25 GM in DEXTROSE 5% 50 ML IV SCH ×2 (00:29→05:26)
[2022-10-15] MEDS: ALPRAZolam 0.25 MG TAB PO PRN (02:04)
--- NOTE | 2022-10-15 02:30 | NUR ---
PATIENT HAS BEEN FREQUENTLY SITTING IN CHAIR IN ROOM STATING SHE DOESN'T FEEL LIKE GOING TO BED. PATIENT HAS ALSO BEEN WALKING AROUND THE ROOM OCCASIONALLY. HAVE OFFERED PATIENT ANXIETY MEDICATION, BUT PATIENT STATES SHE'S FINE. PATIENT STATED THAT SHE WOULD LIKE SOME ANXIETY MEDICATION AT 0145. CHECKED VITALS AND CHART, XANAX WAS APPROPRIATE TO ADMINISTER. MEDICATION ADMINISTERED SUCCESSFULLY WITHOUT ANY DIFFICULTY IN SWALLOWING. PATIENT THEN LAID IN BED AND SAID GOOD NIGHT. WILL CONTINUE TO OBSERVE PATIENT.
[2022-10-15] MEDS: hydrALAZINE 20 MG/ML VIAL IVP PRN (04:12)
[2022-10-15] MEDS: methylPREDNISolone SS 40 MG/ML VIAL IVP SCH (04:17)
--- NOTE | 2022-10-15 05:30 | NUR ---
PATIENT PULLED OUT NEW IV AROUND 0300. NEW IV WAS PLACED INTO PATIENT BY ETHEL UGALDE (MULTIPLE ATTEMPTS WERE MADE BY DIFFERENT RNS). HYDRALAZINE WAS ADMINISTERED TO PATIENT FOR BP 175/89. BP REASSESSED AT 0512; BP NOW 160//65 HR 85. PATIENT ATTEMPTED TO PULL OUT NEW IV BUT WAS STOPPED. PATIENT WAS RE-EDUCATED ON THE IMPORTANCE OF KEEPING HER IV IN (TRANSLATED BY ETHEL MORENO). PATIENT STATED UNDERSTANDING. PATIENT IS NOW LYING ON BED SUPINE ON HER RIGHT SIDE. WILL CONTINUE TO OBSERVE PATIENT.
[2022-10-15 05:39] LABS: HEMATOCRIT 35.5 % (36-48); HEMOGLOBIN 11.8 g/dL (12.0-16.0); LYMPHOCYTES # (AUTO) 1.1 K/uL (2.5-16.5); LYMPHOCYTES % (AUTO) 11.1 % (20.5-51.1); MEAN CORPUSCULAR HEMOGLOBIN 27 pg (27-31); MEAN CORPUSCULAR HGB CONC 33 g/dL (33-37); MEAN CORPUSCULAR VOLUME 81.2 fL (80-94); MONOCYTES # (AUTO) 0.3 K/uL (0.8-1.0); MONOCYTES % (AUTO) 3.6 % (1.7-9.3); NEUTROPHILS # (AUTO) 8.1 K/uL (1.8-7.7); NEUTROPHILS % (AUTO) 85.3 % (42.2-75.2); PLATELET COUNT (AUTO) 256 K/uL (140-450); RED BLOOD CELL COUNT(AUTO) 4.37 MIL/uL (4.20-5.40); RED CELL DISTRIBUTION WIDTH 19.9 % (11.6-13.7); WHITE BLOOD COUNT (AUTO) 9.5 K/uL (4.8-10.8)
[2022-10-15 06:07] LABS: CARBON DIOXIDE 33.8 mmol/L (21-32); CHLORIDE 95 mmol/L (98-107); CREATININE 1.2 mg/dL (0.6-1.3); GLUCOSE 172 mg/dL (74-106); POTASSIUM 3.8 mmol/L (3.5-5.1); SODIUM SERUM 138 mmol/L (136-145); UREA NITROGEN, BLOOD 29 mg/dL (7-18)
[2022-10-15 06:14] LABS: MAGNESIUM 1.8 mg/dL (1.8-2.4)
[2022-10-15] MEDS: BLOOD GLUCOSE MONITORING 1 DEV DEV FS SCH ×2 (06:34→12:11)
[2022-10-15] MEDS: INSULIN LISPRO SLIDING SCALE 100 UNITS/ML VIAL SUBQ PRN ×2 (06:35→13:48)
--- NOTE | 2022-10-15 07:31 | NUR ---
ENDORSED TO DAY SHIFT NURSE ANAI FOR CONTINUITY OF CARE. PATIENT IS STABLE.
[2022-10-15 08:00] VITALS: BP 165/69
[2022-10-15] MEDS: ASPIRIN 81 MG TAB.CHEW PO SCH (09:35)
[2022-10-15] MEDS: FUROSEMIDE 40 MG/4 ML VIAL IVP SCH (09:36)
[2022-10-15] MEDS: PANTOPRAZOLE 40 MG INJ VIAL IVP SCH (09:36)
[2022-10-15] MEDS: DOCUSATE SODIUM 100 MG GELCAP PO SCH (09:36)
[2022-10-15] MEDS: lisinopriL 20 MG TAB PO SCH (09:37)
[2022-10-15] MEDS ORDERED: PRED20TA5 PO (11:50)
[2022-10-15] MEDS ORDERED: AMOX-999 PO (11:50)
[2022-10-15] MEDS ORDERED: ALBU90AE IH (11:50)
[2022-10-15] MEDS ORDERED: BUDE1AER IH (11:50)
--- NOTE | 2022-10-15 14:00 | NUR ---
CALLED [facility] LOCATED AT [id number] [address]. SPOKE WITH DAVID WHO WAS ABLE TO HELP ME SCHEDULE A FOLLOW UP APPOINTMENT FOR 10/20/2022 AT 1330. SPOKE WITH SON BLAISE AND INFORMED HIM OF THE ABOVE INFORMATION WELL WENT TO BEDSIDE TO GIVE PATIENT THE SAME INFO WITH AN APPOINTMENT SLIP.
== END 2022-10-15 14:20 | disposition home or self-care (01) | DRG 720 ==
LOC: MED 19:34 → MMU 21:46 → MTU 10-11 07:56
PROC: 5A09357 Assistance with Respiratory Ventilation, Less than 24 Consecutive Hours, Continuous Positive Airway Pressure (ICD-10-PCS; principal; 2022-10-10)
DX: A41.9 Sepsis, unspecified organism (principal); J96.21 Acute and chronic respiratory failure with hypoxia; J69.0 Pneumonitis due to inhalation of food and vomit; I50.43 Acute on chronic combined systolic (congestive) and diastolic (congestive) heart failure; E86.0 Dehydration; E11.9 Type 2 diabetes mellitus without complications; I11.0 Hypertensive heart disease with heart failure; E78.5 Hyperlipidemia, unspecified; Z20.822 Contact with and (suspected) exposure to COVID-19; J44.1 Chronic obstructive pulmonary disease with (acute) exacerbation; I24.8 Other forms of acute ischemic heart disease; I16.0 Hypertensive urgency; Q25.46 Tortuous aortic arch; Z87.891 Personal history of nicotine dependence; Z90.710 Acquired absence of both cervix and uterus
CPT/HCPCS: 36415; 36600; 71045; 71270; 80048; 80053; 80305; 81001; 82140; 82150; 82803; 82948; 83036; 83605; 83690; 83735; 83880; 84100; 84439; 84443; 84484; 85025; 85610; 85730; 87040; 87081; 87086; 93005; 94617; 94640; 94660; 94761; 96365; 96375; 97110; 97112; 97116; 97530; 99285; C9113; J0360; J0696; J1644; J1940; J2060; J2270; J2543; J2920; J3475; J7060; Q0092; Q9967